=== PATIENT | female | born 1995 | race American Indian/Alaskan Native ===

== ENCOUNTER 2021-10-05 17:00 | Emergency (ER) | payer OTHER ==
[~2021-10-05] VITALS: Ht 162.6 cm; Wt 95.2 kg
[~2021-10-05 17:00] MED LIST: CYCLOBENZAPRINE10 MG PO; IBUPROFEN600 MG PO
--- OUTSIDE RECORDS SUMMARY | 2021-10-05 17:04 | XMS ---
PreManage Notification: JEFF NUNEZ Security Proj Mgr Events No recent Security Events currently on file CRITERIA MET - [facility] - 2 Visits in 30 Days - [facility] - 3 Facilities in 90 Days CARE PROVIDERS There are no care providers on record at this time. Zohra has no Care Guidelines for this patient. EMaryDMary VISIT COUNT (12 MO.) [address] [id number] [facility] TOTAL 7 NOTE: Visits indicate total known visits. ED/C VISIT TRACKING (12 MO.) 10/05/2021 17:03 [facility] [place] TYPE: Emergency COMPLAINT: - [facility]BD [facility] DIAGNOSES: - Abdominal Pain 09/30/2021 18:23 [facility] [place] TYPE: Emergency DIAGNOSES: - ABD PAIN VOMITING FEVER - Right lower quadrant pain 09/19/2021 12:04 [facility] [place] TYPE: Emergency DIAGNOSES: - Viral infection, unspecified - VOMITING BODY ACHES BONDS 07/30/2021 21:17 [facility] [place] TYPE: Emergency DIAGNOSES: - SWOLLEN HANDS AND FEET - Edema, unspecified 03/16/2021 16:34 [facility] [place] TYPE: Emergency DIAGNOSES: - Adverse effect of other nonsteroidal anti-inflammatory drugs [NSAID], initial encounter - LEFT SIDED PAIN VOMITING - Other gastritis without bleeding 01/12/2021 13:45 [facility] [place] TYPE: Emergency DIAGNOSES: - Nausea with vomiting, unspecified - NAUSEA DIZZY VOMITING INPATIENT VISIT TRACKING (12 MO.) No inpatient visits to display in this time frame [id number]
[2021-10-05] MEDS ORDERED: ONDANSETRON ODT4 MG PO (17:21)
[2021-10-05] MEDS ORDERED: PROMETHAZINE HC25 M1 PO ×2 (17:22→21:07)
[2021-10-05] MEDS ORDERED: NAPROSYN500 MG PO (21:07)
[2021-10-05] MEDS ORDERED: ULTRAM50 MG PO (21:07)
== END 2021-10-05 21:41 | disposition home or self-care (01) ==
LOC: ED 17:00
DX: N83.201 Unspecified ovarian cyst, right side (principal); Z88.0 Allergy status to penicillin; Z88.7 Allergy status to serum and vaccine
CPT/HCPCS: 36415; 74177; 80053; 81001; 83690; 84703; 85025; A9270; J1170; J2270; J2405; Q9967

== ENCOUNTER 2022-04-08 09:16 | Emergency (ER) | payer OTHER ==
[~2022-04-08] VITALS: Ht 162.6 cm; Wt 117.0 kg
[~2022-04-08 09:16] MED LIST changes: +NAPROSYN500 MG PO; +ONDANSETRON ODT4 MG PO; +PROMETHAZINE HC25 M1 PO; +ULTRAM50 MG PO
--- OUTSIDE RECORDS SUMMARY | 2022-04-08 09:20 | XMS ---
PreManage Notification: JEFF ACUNA Security Assistant Softball Coach Events No recent Security Events currently on file CRITERIA MET - 6 ED Visits in 6 Months - [facility] - 2 Visits in 30 Days CARE PROVIDERS -, [facility]- Dentist: Ballistics Professor [facility] PHONE: [phone] ANDREW SANTIAGO Community Health Worker 01/08/2022-Current PHONE: [phone] Zohra has no Care Guidelines for this patient. E.Tiffanie VISIT COUNT (12 MO.) [address] [place] [address] TOTAL 14 NOTE: Visits indicate total known visits. ED/UCC VISIT TRACKING (12 MO.) 04/08/2022 09:17 [facility] [place] TYPE: Emergency COMPLAINT: - ABDOMINAL PAIN 11 WEEKS 04/05/2022 13:32 [facility] [place] TYPE: Emergency DIAGNOSES: - LOWER ABD PAIN 11 WEEKS - Vomiting of , unspecified 03/15/2022 16:10 [facility] [place] TYPE: Emergency DIAGNOSES: - Vomiting of , unspecified - POSSIBLE DEHYDRATION 7 WKS PREG - Bacteriuria 03/03/2022 17:40 [facility] [place] TYPE: Emergency DIAGNOSES: - DEHYHDRATED - Nausea with vomiting, unspecified 02/25/2022 11:24 [facility] DIAGNOSES: - POSS UTI - Dysuria 01/28/2022 22:07 [facility] [place] TYPE: Emergency DIAGNOSES: - Acute suppurative otitis media without spontaneous rupture of ear drum, left ear - UNABLE TO HEAR L EAR - Swimmer's ear, left ear 12/25/2021 09:32 [facility] [place] TYPE: Emergency DIAGNOSES: - poss broken r ankle - Sprain of other ligament of right ankle, initial encounter 12/09/2021 08:32 [facility] [place] TYPE: Emergency DIAGNOSES: - 4 WKS PREG, VAGINAL BLEEDING - Complete or unspecified spontaneous without complication 12/03/2021 10:54 [facility] [place] TYPE: Emergency DIAGNOSES: - Encounter for supervision of normal , unspecified, unspecified trimester - POSS MISCARRIAGE - Encounter for test, result positive 10/05/2021 17:03 [facility] [place] TYPE: Emergency COMPLAINT: - ABD PAIN DIAGNOSES: - Unspecified ovarian cyst, right side - Right lower quadrant pain - Allergy status to serum and vaccine - Allergy status to penicillin 10/04/2021 16:44 [facility] TYPE: Emergency DIAGNOSES: - Abdominal Pain 09/30/2021 18:23 [facility] [place] TYPE: Emergency DIAGNOSES: - Right lower quadrant pain - ABD PAIN VOMITING FEVER 09/19/2021 12:04 [facility] [place] TYPE: Emergency DIAGNOSES: - VOMITING BODY ACHES BONDS - Viral infection, unspecified 07/30/2021 21:17 [facility] [place] TYPE: Emergency DIAGNOSES: - Edema, unspecified - SWOLLEN HANDS AND FEET INPATIENT VISIT TRACKING (12 MO.) No inpatient visits to display in this time frame [email or web address]
[2022-04-08] MEDS ORDERED: VENTOLIN HFA18 GM INH (09:51)
[2022-04-08] MEDS ORDERED: BENADRYL25 MG PO (09:51)
[2022-04-08] MEDS ORDERED: PRENATAL VITAM1 EAC2 PO (09:52)
== END 2022-04-08 11:49 | disposition home or self-care (01) ==
LOC: ED 09:16
DX: O21.0 Mild hyperemesis gravidarum (principal); Z3A.11 11 weeks gestation of pregnancy; R10.31 Right lower quadrant pain; Z88.0 Allergy status to penicillin; Z88.2 Allergy status to sulfonamides; Z88.5 Allergy status to narcotic agent; Z88.1 Allergy status to other antibiotic agents; Z88.7 Allergy status to serum and vaccine; O99.891 Other specified diseases and conditions complicating pregnancy
CPT/HCPCS: 36415; 76705; 80053; 83690; 84702; 85025; 96374; 99284-25; J2405; J7030

== ENCOUNTER 2024-04-01 23:22 | Emergency (ER) | payer OTHER ==
[~2024-04-01] VITALS: Ht 162.6 cm; Wt 109.8 kg
[~2024-04-01 23:22] MED LIST changes: +BENADRYL25 MG PO; +PRENATAL VITAM1 EAC2 PO; +VENTOLIN HFA18 GM INH
[2024-04-01] MEDS ORDERED: SODIUM CHLORIDE 0.9% 500 ML IV ONE (23:30)
[2024-04-01] MEDS ORDERED: ondansetron HCL 4 MG/2 ML VIAL IV ONE (23:30)
[2024-04-01] MEDS ORDERED: SODIUM CHLORIDE 0.9% 1,000 ML IV PRN (23:45)
[2024-04-01 23:54] LABS: EOSINOPHILS 1.1 % (0-6); HEMOGLOBIN 13.2 g/dL (12.0-18.0)
[2024-04-01 23:57] LABS: BASOPHILS 2.1 % (0-2); HEMATOCRIT 40.7 % (35.0-50.0); LYMPHOCYTES 34.9 % (24-44); MCH 27.1 (27-36); MCHC 32.5 g/dl (30-36); MCV 83.5 fl (81-99); NEUTROPHILS 54.9 % (39-80); PLATELET COUNT 301 K/uL (140-440); RBC 4.87 M/ul (4.3-5.7); RDW 14.6 (10.5-15.0)
[2024-04-02 00:09] LABS: ANION GAP 12.5 (7-21); BILIRUBIN, TOTAL 0.3 mg/dL (0.2-1.0); BUN/CREATININE RATIO 11.23 (6.0-28.6); CALCIUM 9.4 mg/dL (8.5-10.1); CREATININE, SERUM 0.89 mg/dL (0.55-1.02); POTASSIUM 3.5 mmol/L (3.5-5.1)
[2024-04-02 00:40] LABS: INFLUENZA B NAA NEGATIVE (NEGATIVE); RESPIRATORY SYNCYTIAL VIR NAA NEGATIVE (NEGATIVE)
[2024-04-02] MEDS ORDERED: ONDANSETRON ODT8 MG PO (01:34)
[2024-04-02 01:59] LABS: BILIRUBIN, URINE NEGATIVE (negative); BLOOD/HGB, URINE TRACE-I (Negative); KETONE, URINE NEGATIVE (Negative); LEUK ESTERASE, URINE TRACE (negative); NITRITE, URINE POSITIVE (negative)
[2024-04-02 02:06] LABS: BACTERIA, URINE 2+ /hpf (negative); CRYSTALS, URINE NONE SEEN (0-1+); EPITHELIAL CELLS, URINE SQUAMOUS 2+ /lpf (0-1+)
[2024-04-02 02:07] LABS: CASTS, URINE NONE SEEN \\lpf; COLLECTION TYPE, URINE CLEAN CATCH; REFLEX CULTURE, URINE No (No)
[2024-04-02] MEDS ORDERED: MACROBID 100 M100 MG PO (02:10)
[2024-04-02] MEDS ORDERED: NITROFURANTOIN MONOHYD MACROCR 100 MG HOME.PACK PO ONE (02:15)
[2024-04-02 02:43] VITALS: BP 124/65
[2024-04-02] MEDS ORDERED: ONDANSETRON 4 MG HOME.PACK SL ONE (02:45)
== END 2024-04-02 02:44 | disposition home or self-care (01) ==
LOC: ED 23:22
PROVIDERS: Family Medicine
DX: N39.0 Urinary tract infection, site not specified (principal); R20.8 Other disturbances of skin sensation; K52.9 Noninfective gastroenteritis and colitis, unspecified; Z88.0 Allergy status to penicillin; Z88.2 Allergy status to sulfonamides; Z88.5 Allergy status to narcotic agent; Z88.1 Allergy status to other antibiotic agents; Z88.7 Allergy status to serum and vaccine; Z79.899 Other long term (current) drug therapy
CPT/HCPCS: 36415; 70450; 80053; 81001; 85025; 85060; 87502; 96361; 96374; 99284-25; A9270; J2405; J7030; J7040; U0002